=== PATIENT | female | born 1990 | race Caucasian/White ===

== ENCOUNTER → 2020-01-23 | Outpatient (CLI) | payer OTHER ==
[~2020-01-23] MED LIST: IOPAMIDOL 370 MG/ML 200 ML INFUS..BTL INJ ONE; SODIUM CHLORIDE 0.9% 50ML 50 ML ONE
--- NOTE | 2020-01-23 09:49 | Diagnostic Imaging Report ---
EXAMINATION: CT of the abdomen and pelvis with contrast. TECHNIQUE: Spiral CT images of the abdomen and pelvis were performed from the lung bases to the lesser trochanters after the intravenous administration of 100 cc of Isovue 370. Coronal and sagittal reformatted images were obtained. COMPARISON: Abdominal ultrasound 10/19/2019 CLINICAL HISTORY:Left-sided abdominal pain with radiation to back DISCUSSION: ABDOMEN/PELVIS: LOWER THORAX:Lung bases are unremarkable. No pleural effusion. HEPATOBILIARY: No focal hepatic lesions. No intra-or extrahepatic biliary ductal dilation. The gallbladder is unremarkable. SPLEEN: No splenomegaly or focal splenic lesion. PANCREAS: No focal masses or ductal dilatation. ADRENALS: No adrenal nodules. KIDNEYS/URETERS: No hydronephrosis, calculi, or solid or cystic mass lesions. PELVIC ORGANS/BLADDER: Urinary bladder is unremarkable. No adnexal mass. PERITONEUM/RETROPERITONEUM: No ascites or pneumoperitoneum. LYMPH NODES: No pelvic sidewall, retroperitoneal, or mesenteric lymphadenopathy. VESSELS: Abdominal aorta, major branch vessels, and iliac arterial systems are patent. Portal vein, splenic vein, and central superior mesenteric vein are patent. GI TRACT: Large bowel shows no distension or wall thickening. Appendix is normal. No small bowel dilatation to suggest obstruction. BONES AND SOFT TISSUE: No osseous destructive lesions. No focal soft tissue abnormalities. IMPRESSION: No acute intra-abdominal or pelvic CT abnormalities. Signed by: Dr. Glenn Viveros M.D. on 01/23/2020 9:46 AM
== END ==
LOC: CT 08:20
PROVIDERS: ATTEND Internal Medicine Gastroenterology
DX: R10.9 Unspecified abdominal pain (principal)
CPT/HCPCS: 74177; Q9967